=== PATIENT | male | born 1945 | race Caucasian/White ===

== ENCOUNTER 2019-05-06 11:15 | Emergency (ER) | payer MEDICARE, BC ==
[2019-05-06] MEDS ORDERED: EPINEPHrine 10 ML SYRINGE (0.1 MG/ML) ONE ×2 (11:16)
[2019-05-06] MEDS ORDERED: ETOMIDATE 2 MG/ML 10 ML VIAL ONE (11:16)
[2019-05-06] MEDS ORDERED: CALCIUM CHLORIDE 100 MG/ML 10 ML SYRINGE ONE (11:16)
[2019-05-06] MEDS ORDERED: SODIUM BICARB 8.4% 50 ML SYR (1 MEQ/ML) ONE (11:16)
[2019-05-06 11:41] LABS: HCT 32.3 % (39.0-53.0); HGB 10.1 gm/dL (13.0-17.5); Hypochromasia Marked; MCH 31.1 pg (25.0-35.0); MCHC 31.3 g/dL (31.0-37.0); MCV 99.4 fL (80.0-100.0); Macrocytosis Slight; Mean Platelet Volume 8.6; Platelet Count 195 k/uL (150-450); RBC 3.25 m/uL (4.30-5.90); RDW 14.9 % (11.5-15.5)
[2019-05-06 11:50] LABS: ALT 56 U/L (21-72); AST 45 U/L (17-59); African American GFR (CKD) >90 (>60 ml/min/1.73 sqM); Albumin 3.5 g/dL (3.5-5.0); Alkaline Phosphatase 175 U/L (38-126); Anion Gap 16 mmol/L; Blood Urea Nitrogen 28 mg/dL (9-20); Calcium 8.6 mg/dL (8.4-10.2); Carbon Dioxide 17 mmol/L (22-30); Chloride 99 mmol/L (98-107); Glucose 198 mg/dL (74-99); Non-African American GFR(CKD) 79 (>60 ml/min/1.73 sqM); Potassium 5.1 mmol/L (3.5-5.1); Sodium 132 mmol/L (137-145); Total Protein 5.9 g/dL (6.3-8.2)
[2019-05-06 11:51] LABS: INR 1.4 (<1.2); Partial Thromboplastin Time 53.9 sec (22.0-30.0); Prothrombin Time 13.9 sec (9.0-12.0)
[2019-05-06 12:14] LABS: Troponin I 0.156 ng/mL (0.000-0.034)
--- NOTE | 2019-05-06 12:15 | ED ---
CPR HPI - General Stated Complaint: Stemi Source: EMS Mode of arrival: EMS - History of Present Illness Initial Comments: Patient presented to the emergency department with a complaint per EMS of decreased mental status. On arrival to the resuscitation room, I found the patient to not be breathing, be unarousable and have no pulse. No additional information is provided. They do have some paperwork from an outside hospital w [facility] documents a past medical history. Review of Systems ROS Statement: Those systems with pertinent positive or pertinent negative responses have been documented in the HPI. ROS Other: All systems not noted in ROS Statement are negative. Past Medical History Past Medical History: No Reported History Past Surgical History: No Surgical Hx Reported General Exam Limitations: altered mental status Head exam: Present: atraumatic Eye exam: Present: other (Pupils are 6 mm and nonreactive bilaterally) ENT exam: Present: normal exam Neck exam: Present: normal inspection Respiratory exam: Present: other (No spontaneous breath sounds) Cardiovascular Exam: Present: other (No palpable pulses, no heart tones on auscultation) GI/Abdominal exam: Present: soft Rectal exam: Present: deferred exam: Present: normal inspection Extremities exam: Present: other (No deformities noted) Back exam: Absent: rash noted Neurological exam: Present: other (GCS 3) Psychiatric exam: Present: other (Unobtainable) Skin exam: Present: dry Medical Decision Making - Medical Decision Making Patient presents to the emerge department with a complaint on arrival of cardiopulmonary arrest. CPR was immediately initiated by nursing staff under my supervision. Patient was administered IV epinephrine, 1 amp IV bicarbonate and 1 g IV calcium. Accu-Chek was normal. Pulse check revealed no pulses, PE on the monitor. CPR was continued. Patient briefly regained a pulse, but the pulse was lost shortly thereafter. Patient received multiple additional doses of IV epinephrine and CPR was continued. Repeat bus monitor revealed asystole. Patient was ultimately pronounced . - Lab Data Result diagrams: 05/06/19 11:28 05/06/19 11:28 Lab Results 05/06/19 05/06/19 05/06/19 Range/Units 11:28 11:28 11:28 WBC 14.8 H (3.8-10.6) k/uL RBC 3.25 L (4.30-5.90) m/uL Hgb 10.1 L (13.0-17.5) gm/dL Hct 32.3 L (39.0-53.0) % MCV 99.4 (80.0-100.0) fL MCH 31.1 (25.0-35.0) pg MCHC 31.3 (31.0-37.0) g/dL RDW 14.9 (11.5-15.5) % Plt Count 195 (150-450) k/uL Hypochromasia Marked Macrocytosis Slight PT (9.0-12.0) sec INR (<1.2) APTT (22.0-30.0) sec Sodium 132 L (137-145) mmol/L Potassium 5.1 (3.5-5.1) mmol/L Chloride 99 (98-107) mmol/L Carbon Dioxide 17 L (22-30) mmol/L Anion Gap 16 mmol/L BUN 28 H (9-20) mg/dL Creatinine 0.96 (0.66-1.25) mg/dL Est GFR (CKD-EPI)AfAm >90 (>60 ml/min/1.73 sqM) Est GFR (CKD-EPI)NonAf 79 (>60 ml/min/1.73 sqM) Glucose 198 H (74-99) mg/dL Calcium 8.6 (8.4-10.2) mg/dL Total Bilirubin 2.0 H (0.2-1.3) mg/dL AST 45 (17-59) U/L ALT 56 (21-72) U/L Alkaline Phosphatase 175 H (38-126) U/L Total Creatine Kinase 32 L (55-170) U/L Total Protein 5.9 L (6.3-8.2) g/dL Albumin 3.5 (3.5-5.0) g/dL 05/06/19 Range/Units 11:28 WBC (3.8-10.6) k/uL RBC (4.30-5.90) m/uL Hgb (13.0-17.5) gm/dL Hct (39.0-53.0) % MCV (80.0-100.0) fL MCH (25.0-35.0) pg MCHC (31.0-37.0) g/dL RDW (11.5-15.5) % Plt Count (150-450) k/uL Hypochromasia Macrocytosis PT 13.9 H (9.0-12.0) sec INR 1.4 H (<1.2) APTT 53.9 H (22.0-30.0) sec Sodium (137-145) mmol/L Potassium (3.5-5.1) mmol/L Chloride (98-107) mmol/L Carbon Dioxide (22-30) mmol/L Anion Gap mmol/L BUN (9-20) mg/dL Creatinine (0.66-1.25) mg/dL Est GFR (CKD-EPI)AfAm (>60 ml/min/1.73 sqM) Est GFR (CKD-EPI)NonAf (>60 ml/min/1.73 sqM) Glucose (74-99) mg/dL Calcium (8.4-10.2) mg/dL Total Bilirubin (0.2-1.3) mg/dL AST (17-59) U/L ALT (21-72) U/L Alkaline Phosphatase (38-126) U/L Total Creatine Kinase (55-170) U/L Total Protein (6.3-8.2) g/dL Albumin (3.5-5.0) g/dL 05/06/19 12:12 Twelve-lead EKG was obtained which showed wide QRS complexes, no P waves, decreased heart rate, axis not delineated, no obvious ST changes, interpreted by me as junctional bradycardia. Disposition Clinical Impression: Cardiac arrest Disposition: Condition: Critical Is patient prescribed a controlled substance at d/c from ED?: No Referrals: Hardy Castano DO [Primary Care Provider] - 1-2 days Preliminary Cause of : cardiac arrest
[2019-05-06 12:27] LABS: Band Neutrophils % 3 %; Eosinophils # (M) 0.28 k/uL (0-0.7); Lymphocytes # (M) 4.79 k/uL (1.0-4.8); Metamyelocytes # (M) 0.14 k/uL (0); Metamyelocytes % 1 %; Monocytes # (M) 1.27 k/uL (0-1.0); Myelocytes # (M) 0.42 k/uL (0); Myelocytes % 3 %; Neutrophils % (M) 50 %; Nucleated Red Blood Cells 5 /100 WBC (0-0); Poikilocytosis (M) Present; Polychromasia Present; Total Cells Counted 200; WBC 14.1 k/uL (3.8-10.6)
[2019-05-06 12:28] LABS: Toxic Granulation Present
== END 2019-05-06 14:38 | disposition expired ==
LOC: EC 11:15
DX: I46.9 Cardiac arrest, cause unspecified (principal); R40.2430 Glasgow coma scale score 3-8, unspecified time
CPT/HCPCS: 36415; 80053; 82550; 82553; 84484; 85025; 85610; 85730; 92950; 99285